=== PATIENT | male | born 1995 | race Caucasian/White ===

== ENCOUNTER 2017-02-10 16:57 | Emergency (ER) | payer OTHER | END 2017-02-10 17:31 | disposition left against medical advice (07) | LOC: ER 16:59 | DX: Z53.21 Procedure and treatment not carried out due to patient leaving prior to being seen by health care provider (principal) ==

== ENCOUNTER 2017-04-11 20:39 | Emergency (ER) | payer OTHER ==
[~2017-04-11] VITALS: Ht 172.7 cm; Wt 95.3 kg
--- NOTE | 2017-04-11 20:45 | NUR ---
TO BED 8 A 21 YO MALE BIBSELF WITH C/O NON RADIATING CP, SOB X" COUPLE OF DAYS" PT SPEAKING IN FULL SENTENCESS. VSS. NONDIAPHORETIC. BREATHING EVEN AND UNLABORED. SATTING AT 98%-100% ON ROOM AIR. GOWNED. INITIATED COMFORT MEASURES. AWAITING FOR ER MD TORRES.
--- NOTE | 2017-04-11 22:15 | NUR ---
Patient discharged to home in stable condition. Written and verbal after care instructions given. Patient verbalizes understanding of instruction. Patient is ambulatory with steady gait, accompanied by family. No further complaints.
[2017-04-11 22:41] VITALS: BP 140/69
== END 2017-04-11 22:20 | disposition home or self-care (01) ==
LOC: ER 20:39
DX: R06.02 Shortness of breath (principal); F17.200 Nicotine dependence, unspecified, uncomplicated; Z88.1 Allergy status to other antibiotic agents
CPT/HCPCS: 71010-TC; A4606; Z7610

== ENCOUNTER 2018-04-12 21:25 | Emergency (ER) | payer OTHER ==
[~2018-04-12] VITALS: Ht 175.3 cm; Wt 81.6 kg
[2018-04-12 21:28] VITALS: BP 125/88
[2018-04-12] MEDS ORDERED: GELATIN SPONGE,ABSORBABLE 1 SPONGE SPONGE TP ONE ×4 (22:09→23:30)
[2018-04-12] MEDS ORDERED: IV NS 0.9% 500 ML BAG IV ONE (22:30)
[2018-04-12] MEDS ORDERED: ONDANSETRON HCL/PF 4 MG/2 ML VIAL IVP ONE (22:30)
== END 2018-04-12 23:36 | disposition home or self-care (01) ==
LOC: ER 21:26
DX: K91.840 Postprocedural hemorrhage of a digestive system organ or structure following a digestive system procedure (principal); F17.200 Nicotine dependence, unspecified, uncomplicated; Z88.1 Allergy status to other antibiotic agents
CPT/HCPCS: 99283; A4606; Z7610

== ENCOUNTER 2018-12-17 22:44 | Emergency (ER) | payer OTHER ==
[~2018-12-17] VITALS: Ht 172.7 cm; Wt 81.6 kg
[2018-12-17 23:16] VITALS: BP 133/86
--- NOTE | 2018-12-17 23:45 | NUR ---
Xray at bedside.
--- NOTE | 2018-12-17 23:47 | NUR ---
Pt refused the rapid flu swab.
== END 2018-12-18 01:39 | disposition home or self-care (01) ==
LOC: ER 22:56
DX: J06.9 Acute upper respiratory infection, unspecified (principal); F17.210 Nicotine dependence, cigarettes, uncomplicated; Z87.01 Personal history of pneumonia (recurrent); Z88.1 Allergy status to other antibiotic agents
CPT/HCPCS: 71045-TC

== ENCOUNTER 2021-06-25 10:54 | Emergency (ER) | payer OTHER ==
[~2021-06-25] VITALS: Ht 177.8 cm; Wt 86.2 kg
[2021-06-25 10:59] VITALS: BP 138/85
--- NOTE | 2021-06-25 11:10 | NUR ---
SEEN AND EXAMINED BY .
--- NOTE | 2021-06-25 12:00 | NUR ---
ULNAR SPLINT DONE BY METROLOGY SPECIALIST.
--- NOTE | 2021-06-25 12:11 | NUR ---
Patient discharged to home in stable condition. Written and verbal after care instructions given. Patient verbalizes understanding of instruction.
== END 2021-06-25 12:10 | disposition home or self-care (01) ==
LOC: ER 10:55
DX: S60.221A Contusion of right hand, initial encounter (principal); F17.200 Nicotine dependence, unspecified, uncomplicated; Z88.1 Allergy status to other antibiotic agents; Y08.89XA Assault by other specified means, initial encounter; Y93.89 Activity, other specified; Y92.89 Other specified places as the place of occurrence of the external cause; Y99.8 Other external cause status
CPT/HCPCS: 73130-TC